=== PATIENT | male | born 1985 | race Caucasian/White ===

== ENCOUNTER 2021-09-08 02:30 | Emergency (ER) | payer SELFPAY ==
[~2021-09-08] VITALS: Ht 174 cm; Wt 77.0 kg
[2021-09-08] MEDS ORDERED: LACTATED RINGERS 1,000 ML IV ONE (02:45)
[2021-09-08] MEDS ORDERED: TETANUS,DIPTH,PERTUSS P/F (BOOSTRIX) 0.5 ML VIAL IM ONE (02:45)
[2021-09-08] MEDS ORDERED: PIPERACILLIN SODIUM/TAZOBACTAM 4.5 GM in NS (IVPB) 100 ML IV ONE (02:45)
[2021-09-08] MEDS ORDERED: KETOROLAC 30 MG/ML VIAL IVP ONE (02:45)
[2021-09-08 02:51] LABS: BASOPHILS # (AUTO) 0.1 10^3/uL (0.0-0.1); BASOPHILS % (AUTO) 1 % (0-10); EOSINOPHILS % (AUTO) 0 % (0-10); HEMATOCRIT 42 % (40-54); HEMOGLOBIN 14.4 g/dL (13.3-17.7); LYMPHOCYTES # (AUTO) 4.1 10^3/uL (1.0-4.0); LYMPHOCYTES % (AUTO) 22 % (12-44); MEAN CORPUSCULAR HEMOGLOBIN 31 pg (25-34); MEAN CORPUSCULAR HGB CONC 35 g/dL (32-36); MEAN CORPUSCULAR VOLUME 89 fL (80-99); MEAN PLATELET VOLUME 10.6 fL (9.0-12.2); MONOCYTES # (AUTO) 0.9 10^3/uL (0.0-1.0); MONOCYTES % (AUTO) 5 % (0-12); NEUTROPHILS # (AUTO) 13.4 10^3/uL (1.8-7.8); NEUTROPHILS % (AUTO) 72 % (42-75); PLATELET COUNT 301 10^3/uL (130-400); WHITE BLOOD COUNT 18.7 10^3/uL (4.3-11.0)
[2021-09-08 02:58] LABS: ALBUMIN 4.5 GM/DL (3.2-4.5); POTASSIUM 3.5 MMOL/L (3.6-5.0)
[2021-09-08 02:59] LABS: CALCIUM 8.9 MG/DL (8.5-10.1)
[2021-09-08 03:01] LABS: PROTHROMBIN TIME PATIENT 13.2 SEC (12.2-14.7); TOTAL PROTEIN 7.6 GM/DL (6.4-8.2)
[2021-09-08 03:02] LABS: BILIRUBIN,TOTAL 0.4 MG/DL (0.1-1.0)
[2021-09-08 03:04] LABS: CREATININE SERUM 1.07 MG/DL (0.60-1.30)
[2021-09-08 03:11] LABS: LYMPHOCYTES % (MANUAL) 25 %; MONOCYTES % (MANUAL) 4 %; NEUTROPHILS % (MANUAL) 70 %
[2021-09-08 03:12] LABS: BASOPHILS % (MANUAL) 1 %; RBC MORPH NORMAL
[2021-09-08] MEDS ORDERED: AMOX1TAB12 PO (03:33)
[2021-09-08] MEDS ORDERED: NAPR500T8 PO (03:33)
[2021-09-08] MEDS ORDERED: ACHD5005 PO (03:33)
--- NOTE | 2021-09-08 03:34 | ED Upper Extremity ---
General Chief Complaint: Bite-Animal/Human/Insect Stated Complaint: BITTEN BY A MULE AND DRAGGED AROUND Nursing Triage Note: LEFT ARM MULE BITE Source: patient History of Present Illness Date Seen by Provider: Sep 08, 2021 Time Seen by Provider: 02:30 Initial Comments PT ARRIVES VIA POV FROM [place], NEEDS WHEELCHAIR ON ARRIVAL JUST PRIOR TO ARRIVAL-AROUND 0200, PT STATES HE WAS BITTEN ON HIS LEFT FOREARM BY HIS NEIGHBOR'S MULE STATES HE WAS PETTING THE MULE WHEN IT BIT HIM. STATES THE MULE DRUG HIM FOR A FEW FEET, BUT PT DENIES ANY OTHER INJURIES OR AREAS OF PAIN NO LOSS OF CONSCIOUSNESS OR INJURY TO HEAD NO PARESTHESIAS OR MOTOR DEFICITS NO NECK OR BACK PAIN LAST TETANUS VACCINE IS UNKNOWN PT HAS NO KNOWN CHRONIC MEDICAL PROBLEMS AND DOES NOT TAKE ANY MEDICATIONS PT HAS DRANK AN UNKNOWN AMOUNT OF ALCOHOL TONIGHT DENIES DRUG USE. PCP: NONE Allergies and Home Medications Allergies Coded Allergies: No Known Drug Allergies (Unverified , 09/08/21) Patient Home Medication List Amoxicillin/Potassium Clav (Amox Tr-K Clv 875-125 mg Tab) 875 Mg-125 Mg Tablet, 2 EA PO BID, (Reported) Entered as Reported by: HENNY VASQUES on 09/10/21 1114 Hydrocodone/Acetaminophen (Hydrocodone-Acetamin 5-325 mg) 5 Mg-325 Mg Tablet, 1 EA PO Q4H PRN for PAIN-MODERATE (5-7), (Reported) Entered as Reported by: HENNY VASQUES on 09/10/21 1114 Naproxen (Naproxen) 500 Mg Tablet.dr, 1,000 MG PO BID, (Reported) Entered as Reported by: HENNY VASQUES on 09/10/21 1110 Review of Systems Constitutional: no symptoms reported EENTM: no symptoms reported Respiratory: no symptoms reported Cardiovascular: no symptoms reported Gastrointestinal: no symptoms reported Genitourinary: no symptoms reported Musculoskeletal: see HPI Skin: see HPI Psychiatric/Neurological: No Symptoms Reported Past Vsdtgvq-Iqukvp-Bovauf Hx Patient Social History Tobacco Use?: No Substance use?: No Alcohol Use?: Yes Alcohol Frequency: Once in a while Pt feels they are or have been: No Immunizations Up To Date Tetanus Booster (TDap): Unknown Past Medical History Surgery/Hospitalization HX: DENIES Surgeries: No Respiratory: No Cardiac: No Neurological: No Genitourinary: No Gastrointestinal: No Musculoskeletal: No Endocrine: No HEENT: No Cancer: No Psychosocial: No Integumentary: No Blood Disorders: No Physical Exam Vital Signs Vital Signs - First Documented 09/08/21 02:30 Temp 36.6 Pulse 53 Resp 16 B/P (MAP) 100/88 (92) Pulse Ox 95 O2 Delivery Room Air Capillary Refill : Less Than 3 Seconds Height, Weight, BMI Height: '" Weight: lbs. oz. kg; 25.00 BMI Method: General Appearance: thin, other (PT WEARING ONLY SHORTS AND "CROC"-TYPE SHOES. PT IS COVERED IN MUD AND DIRT FROM HEAD TO TOE. PT REEKS OF ALCOHOL, PT IS PALE AND DIAPHORETIC ON ARRIVAL. SPEECH IS CLEAR. PT IS VERY PLEASANT AND COOPERATIVE. REEKS OF ALCOHOL) HEENT: PERRL/EOMI, other (NO EXTERNAL EVIDENCE OF TRAUMA TO HEAD) Neck: non-tender, full range of motion, supple, normal inspection Cardiovascular: normal peripheral pulses, regular rate, rhythm Respiratory: chest non-tender, normal breath sounds Gastrointestinal: non tender, soft Back: normal inspection, no CVA tenderness, no vertebral tenderness Shoulder: normal inspection Elbow/Forearm: Left (LEFT FOREARM WITH MULTIPLE LACERATIONS --2 LARGE LACERATIONS TO ANTERIOR ASPECT OF FOREARM ( 2 X 6 CM, AND 2 X 3 CM ) --WITH SIGNFICANT MUSCLE INVOLVEMENT. POSTERIOR ASPECT OF LEFT FOREARM WITH 3 LACERATIONS --ALL 1 X 1.5 CM IN SIZE, AND ARE FAIRLY SUPERFICIAL-DO NOT APPEAR TO INVOLVE MUSCLE TISSUE. HAS A SMALLER SUPERFICIAL ABRASION ASSOCIATED WITH THESE LACERATIONS. ALL WOUNDS ARE HEAVILY CONTAMINATED WITH DIRT/MUD. ALL WOUNDS WITH SLOW CONSTANT OOZING. ALL DISTAL MOTOR/SENSORY/VASCULAR IS INTACT. NO DEFICIT IN TENDON FUNCTION. ) Wrist: Yes normal inspection Hand: normal inspection Neurologic/Psychiatric: electric meter installer II-XII nml as tested, alert, normal mood/affect, oriented x 3 Skin: cool, diaphoresis, pallor Progress/Results/Core Measures Results/Orders Lab Results My Orders Medications Given in ED Vital Signs/I&O Blood Pressure Mean: 92 Progress Progress Note : Progress Note GIVEN IV WARM FLUIDS, ANTIBIOTICS, DPT VACCINE AND PAIN MEDICATIONS BP UP AND COLOR IMPROVED WITH IV FLUIDS ALL WOUNDS CLEANED AND PROFUSELY IRRIGATED WITH BETASEPT AND 5 LITERS OF SALINE AND STERILE WATER AND EXPLORED. UNABLE TO LOCATE THE LARGER FOREIGN BODY NOTED ON XRAY AT THIS TIME. WOUNDS PACKED WITH 1" IODOFORM GAUZE AND STERILE DRESSINGS APPLIED AND SECURED WITH ANICETO WRAP, PER 'S INSTRUCTIONS. [facility] DEPT CONTACTED, NO ONE FROM [facility] IS AVAILABLE AT THIS TIME. PT'S INFORMATION WAS GIVEN TO THEM. RABIES VACCINES ARE NOT INDICATED AT THIS TIME, DUE TO LOW RISK, AND THE ANIMAL IS KNOWN AND CAN BE OBSERVED. STRICT RETURN PRECAUTIONS DISCUSSED WITH PT. Diagnostic Imaging Comments XRAYS LEFT FOREARM--PENDING RADIOLOGIST REVIEW LARGE FOREIGN BODY AND MULTIPLE SMALL FOREIGN BODIES NOTED IN SOFT TISSUES, WITH SOFT TISSUE DEFECTS NOTED NO BONY TRAUMA NOTED. Reviewed: Reviewed by Me Departure Communication (Admissions) 255--SPOKE WITH DR. MORE, SURGEON GROUP RESERVATIONS COORDINATOR. HE ADVISES TO TAKE PICTURES OF XRAYS AND OF THE WOUNDS AND TEXT TO HIM 307--SPOKE WITH DR. MORE AGAIN. HE HAS REVIEWED PHOTOS AND XRAYS. I DISCUSSED POSSIBILITY OF TAKING TO THE O.R. AND/OR ADMIT FOR IV ANTIBIOTICS AND HE ADVISES TO PACK WOUNDS WITH IODOFORM PACKING, START ON AUGMENTIN AND HE WILL SEE PT IN OFFICE ON FRIDAY. Impression Primary Impression: MULE BITE TO LEFT FOREARM Additional Impressions: COMPLEX LACERATIONS TO LEFT FOREARM WITH RETAINED FOREIGN BODY Npexbboklu-ukxgbklwu-zdjscfg (DPT) vaccination administered at current visit Alcohol intoxication Disposition: HOME, SELF-CARE Condition: Stable Departure-Patient Inst. Decision time for Depature: 03:30 Referrals: ROSE MORE DO Patient Instructions: Animal Bites (DC), Diphtheria and Tetanus Toxoids, and Acellular Pertussis Vaccine Add. Discharge Instructions: NO ALCOHOL LEAVE DRESSING IN PLACE ICE TO AREA AT 20 MINUTE INTERVALS AND ELEVATE ARM MUCH POSSIBLE FOLLOW UP WITH DR. MORE, SURGEON, ON FRIDAY FOR FURTHER CARE--CALL FIRST THING FRIDAY MORNING TO SCHEDULE APPOINTMENT RETURN TO ER IF SYMPTOMS WORSEN, ESPECIALLY IF YOU DEVELOP FEVER, INCREASED PAIN, NUMBNESS/TINGLING, ETC. All discharge instructions reviewed with patient and/or family. Voiced understanding. MANJIT MOONEY DO Sep 08, 2021 03:34
[2021-09-08 03:39] VITALS: BP 120/67
--- NOTE | 2021-09-08 07:07 | Diagnostic Imaging Report ---
EXAMINATION: Left forearm radiograph, 2 views. COMPARISON: None. HISTORY: 36-year-old male, multiple bites of the left forearm. FINDINGS: There is a high attenuation foreign body within the anterior soft tissues at the level of the mid forearm which measures up to approximately 1.2 cm in size. There are multiple adjacent additional fairly linear high attenuation foreign bodies including more proximally located in the anterior soft tissues centered approximately 2.8 cm proximal to the largest foreign body. There are overlying areas of skin contour abnormality as well as adjacent soft tissue gas as well as skin contour abnormalities and areas of lucency in the posterior soft tissues most likely relating to multiple sites of soft tissue injury and/or penetrating type injury. There are also punctate high attenuation foci in the posterior soft tissues extending from the level of the proximal to mid radial diaphysis to the mid to distal radial diaphysis. There is no identified acute fracture. There is no cortical or aggressive bone destruction. IMPRESSION: 1. Multiple sites of soft tissue injury and/or penetrating type injuries at the level of the anterior and posterior aspects of the mid forearm. 2. Multiple foreign bodies both anteriorly and posteriorly located. 3. No identified acute osseous abnormality. Dictated by: Dictated on workstation # [id number]
== END 2021-09-08 03:42 | disposition home or self-care (01) ==
LOC: ER 02:35
DX: S51.852A Open bite of left forearm, initial encounter (principal); S51.822A Laceration with foreign body of left forearm, initial encounter; F10.129 Alcohol abuse with intoxication, unspecified; Z23 Encounter for immunization; W55.81XA Bitten by other mammals, initial encounter
CPT/HCPCS: 73090; 80053; 85007; 85027; 85610; 85730; 93041; 99284; G0480; 36415; 80320; 90715

== ENCOUNTER 2021-09-09 08:13 | Inpatient (IN) | payer SELFPAY ==
[~2021-09-09] VITALS: Ht 170.2 cm; Wt 66.8 kg
[~2021-09-09 08:13] MED LIST: ACHD5005 PO; AMOX1TAB12 PO; NAPR500T8 PO
[2021-09-09 09:25] LABS: BASOPHILS % (AUTO) 0 % (0-10); EOSINOPHILS % (AUTO) 0 % (0-10); HEMATOCRIT 42 % (40-54); HEMOGLOBIN 14.4 g/dL (13.3-17.7); LYMPHOCYTES % (AUTO) 8 % (12-44); MEAN CORPUSCULAR HEMOGLOBIN 31 pg (25-34); MEAN CORPUSCULAR HGB CONC 35 g/dL (32-36); MEAN CORPUSCULAR VOLUME 89 fL (80-99); MEAN PLATELET VOLUME 10.6 fL (9.0-12.2); MONOCYTES # (AUTO) 1.5 10^3/uL (0.0-1.0); MONOCYTES % (AUTO) 12 % (0-12); NEUTROPHILS # (AUTO) 10.3 10^3/uL (1.8-7.8); NEUTROPHILS % (AUTO) 80 % (42-75); PLATELET COUNT 204 10^3/uL (130-400); WHITE BLOOD COUNT 12.8 10^3/uL (4.3-11.0)
[2021-09-09 09:31] LABS: ALBUMIN 4.4 GM/DL (3.2-4.5)
[2021-09-09 09:32] LABS: POTASSIUM 3.8 MMOL/L (3.6-5.0)
[2021-09-09 09:33] LABS: CALCIUM 9.3 MG/DL (8.5-10.1)
[2021-09-09 09:34] LABS: TOTAL PROTEIN 7.8 GM/DL (6.4-8.2)
[2021-09-09 09:36] LABS: BILIRUBIN,TOTAL 2.5 MG/DL (0.1-1.0)
[2021-09-09 09:38] LABS: CREATININE SERUM 1.01 MG/DL (0.60-1.30)
--- NOTE | 2021-09-09 09:48 | Diagnostic Imaging Report ---
CLINICAL INDICATION: Patient was bit by donkey. Patient states that he was seen last Friday night for a mule bite. Patient stated that his hand started swelling last night. EXAM: X-ray of the left forearm, 2 views. COMPARISON: X-ray of the left forearm dated 09/08/2021. FINDINGS AND IMPRESSION: 1: Again noted prominent soft tissue avulsions involving the volar aspect of the soft tissue of the mid to proximal forearm region. There are stable multiple radiodense foreign objects in the region of the soft tissue laceration. There is soft tissue swelling seen in the region. There is also soft tissue swelling and laceration involving the dorsal aspect of the forearm in a similar location. 2: There is no acute fracture or dislocation. Dictated by: Dictated on workstation # [id number]
[2021-09-09 09:49] LABS: EOSINOPHILS % (MANUAL) 1 %; LYMPHOCYTES % (MANUAL) 6 %; MONOCYTES % (MANUAL) 5 %; NEUTROPHILS % (MANUAL) 83 %; REACTIVE LYMPHOCYTES 5 %
[2021-09-09 09:50] LABS: RBC MORPH NORMAL
[2021-09-09] MEDS ORDERED: VANCOMYCIN INJECTION 750 MG in NS (IVPB) 250 ML IV SCH (10:00)
--- NOTE | 2021-09-09 10:12 | ED General ---
General Chief Complaint: Upper Extremity Stated Complaint: L ARM SWELLING - MULE BITE 09/07 Nursing Triage Note: PT AMB TO RM 5 A/O X4. PT STATED THAT HE WAS SEEN LATE FRIDAY NIGHT FOR A MULE BITE. PT STATED THAT HIS HAND STARTED SWELLING LAST NIGHT. Source of Information: Patient, Family, Old Records Exam Limitations: No Limitations History of Present Illness Date Seen by Provider: Sep 09, 2021 Time Seen by Provider: 08:52 Initial Comments This 36-year-old gentleman presents to the emergency room with concerns about worsening pain, swelling, and redness of the forearm, wrist, and hand after being injured and bitten by a donkey on Friday night. He was seen in the emergency room. The wound was thoroughly irrigated, packed, and dressed. He was treated with Zosyn at that time and prescribed Augmentin which he started last night. In the night he was feeling feverish and chilled. This morning he was feeling generally ill and nauseous. He took hydrocodone and naproxen this morning as prescribed. Dressing has not been changed since the injury. He is afebrile with unremarkable vital signs at this time. Patient was heavily intoxicated at the time of the incident. He does not drink daily per his report. Allergies and Home Medications Allergies Coded Allergies: No Known Drug Allergies (Unverified , 09/08/21) Patient Home Medication List Home Medication List Reviewed: Yes Amoxicillin/Potassium Clav (Amox Tr-K Clv 875-125 mg Tab) 875 Mg-125 Mg Tablet, 2 EACH PO BID Prescribed by: MANJIT MOONEY on 09/08/21332 Hydrocodone/Acetaminophen (Hydrocodone-Acetamin 5-325 mg) 5 Mg-325 Mg Tablet, 1 EACH PO Q4-6 HOURS PRN for PAIN Prescribed by: MANJIT MOONEY on 09/08/21332 Naproxen (Naproxen) 500 Mg Tablet.dr, 500 MG PO BID Prescribed by: MANJIT MOONEY on 09/08/21332 Review of Systems Review of Systems Constitutional: see HPI EENTM: no symptoms reported Respiratory: no symptoms reported Cardiovascular: no symptoms reported Gastrointestinal: see HPI Genitourinary: no symptoms reported Musculoskeletal: see HPI Skin: see HPI Psychiatric/Neurological: No Symptoms Reported Hematologic/Lymphatic: No Symptoms Reported Immunological/Allergic: no symptoms reported Past Zrxsilv-Uoinlj-Klnabu Hx Patient Social History Tobacco Use?: No Substance use?: No Alcohol Use?: Yes Alcohol Frequency: Once in a while Pt feels they are or have been: Unable to obtain Immunizations Up To Date Tetanus Booster (TDap): Unknown Influenza Vaccine Up-to-Date: No; Not Current Past Medical History Surgery/Hospitalization HX: DENIES Surgeries: No Respiratory: No Cardiac: No Neurological: No Genitourinary: No Gastrointestinal: No Musculoskeletal: No Endocrine: No HEENT: No Cancer: No Psychosocial: No Integumentary: No Blood Disorders: No Physical Exam-Suspected Sepsis Physical Exam Vital Signs Vital Signs - First Documented 09/09/21 08:23 Temp 36.2 Pulse 63 Resp 14 B/P (MAP) 127/80 (96) O2 Delivery Room Air Capillary Refill : Less Than 3 Seconds Blood Pressure Mean: 96 Height, Weight, BMI Height: '" Weight: lbs. oz. kg; 22.00 BMI Method: General Appearance: No Apparent Distress, WD/WN, Thin HEENT: PERRL/EOMI, Other (Multiple scabbed abrasions on the head and face) Neck: Normal Inspection Respiratory: Lungs Clear, Normal Breath Sounds, No Accessory Muscle Use Cardiovascular: Regular Rate, Rhythm, No Edema, No Murmur Gastrointestinal: Normal Bowel Sounds, Non Tender, Soft; No Distended Extremity: No Pedal Edema, Other (2 large lacerations on the ventral aspect of the left arm packed with gauze and demonstrating mild serosanguineous oozing. There is no purulent drainage. The hand, wrist, and forearm distal to the wounds are erythematous, swollen, tender, and warm. He retains flexion and extension of the fingers and movement in the wrist. He retains sensation of his fingertips. Radial pulse is strong.) Neurologic/Psychiatric: Alert, Oriented x3, No Motor/Sensory Deficits, Normal Mood/Affect Skin: warm/dry, other (Scattered scabbed abrasions in several locations. Left upper extremity exam as above.) Focused Exam Lactate Level 09/09/21 09:38: Lactic Acid Level 0.76 Lactic Acid Level Laboratory Tests Test 09/09/21 09:38 Lactic Acid Level 0.76 MMOL/L (0.50-2.00) Progress/Results/Core Measures Suspected Sepsis SIRS Temperature: Pulse: 63 Respiratory Rate: 14 Laboratory Tests 09/09/21 09:10: White Blood Count 12.8H Blood Pressure 127 /80 Mean: 96 09/09/21 09:38: Lactic Acid Level 0.76 Laboratory Tests 09/09/21 09:10: Creatinine 1.01, Platelet Count 204, Total Bilirubin 2.5H Results/Orders Lab Results Laboratory Tests Test 09/09/21 09:10 09/09/21 09:38 Range/Units White Blood Count 12.8 H 4.3-11.0 10^3/uL Red Blood Count 4.67 4.30-5.52 10^6/uL Hemoglobin 14.4 13.3-17.7 g/dL Hematocrit 42 40-54 % Mean Corpuscular Volume 89 80-99 fL Mean Corpuscular Hemoglobin 31 25-34 pg Mean Corpuscular Hemoglobin Concent 35 32-36 g/dL Red Cell Distribution Width 12.1 10.0-14.5 % Platelet Count 204 130-400 10^3/uL Mean Platelet Volume 10.6 9.0-12.2 fL Immature Granulocyte % (Auto) 1 % Neutrophils (%) (Auto) 80 H 42-75 % Lymphocytes (%) (Auto) 8 L 12-44 % Monocytes (%) (Auto) 12 0-12 % Eosinophils (%) (Auto) 0 0-10 % Basophils (%) (Auto) 0 0-10 % Neutrophils # (Auto) 10.3 H 1.8-7.8 10^3/uL Lymphocytes # (Auto) 1.0 1.0-4.0 10^3/uL Monocytes # (Auto) 1.5 H 0.0-1.0 10^3/uL Eosinophils # (Auto) 0.0 0.0-0.3 10^3/uL Basophils # (Auto) 0.0 0.0-0.1 10^3/uL Immature Granulocyte # (Auto) 0.1 0.0-0.1 10^3/uL Neutrophils % (Manual) 83 % Lymphocytes % (Manual) 6 % Monocytes % (Manual) 5 % Eosinophils % (Manual) 1 % Reactive Lymphocytes 5 % Blood Morphology Comment NORMAL Sodium Level 138 135-145 MMOL/L Potassium Level 3.8 3.6-5.0 MMOL/L Chloride Level 101 98-107 MMOL/L Carbon Dioxide Level 26 21-32 MMOL/L Anion Gap 11 5-14 MMOL/L Blood Urea Nitrogen 19 H 7-18 MG/DL Creatinine 1.01 0.60-1.30 MG/DL Estimat Glomerular Filtration Rate 99 BUN/Creatinine Ratio 19 Glucose Level 109 H 70-105 MG/DL Calcium Level 9.3 8.5-10.1 MG/DL Corrected Calcium 9.0 8.5-10.1 MG/DL Total Bilirubin 2.5 H 0.1-1.0 MG/DL Aspartate Amino Transf (AST/SGOT) 335 H 5-34 U/L Alanine Aminotransferase (ALT/SGPT) 230 H 0-55 U/L Alkaline Phosphatase 82 40-136 U/L C-Reactive Protein High Sensitivity 13.14 H 0.00-0.50 MG/DL Total Protein 7.8 6.4-8.2 GM/DL Albumin 4.4 3.2-4.5 GM/DL Acetaminophen Level < 10 L 10-30 UG/ML Lactic Acid Level 0.76 0.50-2.00 MMOL/L My Orders Orders - DANNA ASHRAF MD Cbc With Automated Diff (09/09/21 09:09) Comprehensive Metabolic Panel (09/09/21 09:09) Blood Culture (09/09/21 09:09) Ed Iv/Invasive Line Start (09/09/21 09:09) Vital Signs Adult Sepsis Patie Q15M (09/09/21 09:09) Remove Rings In Anticipation O (09/09/21 09:09) Lactic Acid Analyzer (09/09/21 09:09) Wound Culture (09/09/21 09:19) Forearm, Left, 2 Views (09/09/21 09:20) Manual Differential (09/09/21 09:10) Hs C Reactive Protein (09/09/21 09:35) Procalcitonin (Pct) (09/09/21 09:35) Wound Culture (09/09/21 09:35) Acetaminophen (09/09/21 09:49) Vancomycin Injection (Vancomycin Injecti (09/09/21 10:00) Vital Signs/I&O 09/09/21 08:23 Temp 36.2 Pulse 63 Resp 14 B/P (MAP) 127/80 (96) O2 Delivery Room Air Capillary Refill : Less Than 3 Seconds Blood Pressure Mean: 96 Progress Note : Time: 10:10 Progress Note Patient was found to have modest to moderate elevation in WBC and CRP. Review of prior documentation notes the foreign body seen on prior x-ray was not found during wound exploration. Repeat x-rays with skin markers were obtained, and the foreign bodies are still retained. There is concerned that these foreign bodies could be a nidus for infection and causing cellulitis of the hand and wrist. I have discussed this with Dr. Rondon. Surgical exploration of the wound to investigate these foreign bodies is being contemplated. Patient will be kept n.p.o. for the time being. In the meantime, we will treat with Zosyn and vancomycin. Patient also has a curious significant increase in transaminase and bilirubin levels. He denies any use of Tylenol other than the hydrocodone he was prescribed. Tylenol level was undetectable. The increase was marked from his labs on Friday. Wound will be repacked with iodoform packing and wrapped with Kerlix. Case was also discussed with Dr. Pop who will be the attending physician. Diagnostic Imaging Diagonstic Imaging: Xray Plain Films/CT/US/NM/MRI: chest Comments Forearm x-ray viewed by me and report reviewed. See report below: NAME: ZEN PARKER [facility] REC#: [id number] PT STATUS: REG ER : 1985 PHYSICIAN: DANNA ASHRAF MD ADMIT DATE: 09/09/21/ER Draft Date of Exam:09/09/21 FOREARM, LEFT, 2 VIEWS CLINICAL INDICATION: Patient was bit by donkey. Patient states that he was seen last Friday night for a mule bite. Patient stated that his hand started swelling last night. EXAM: X-ray of the left forearm, 2 views. COMPARISON: X-ray of the left forearm dated 09/08/2021. FINDINGS AND IMPRESSION: 1: Again noted prominent soft tissue avulsions involving the volar aspect of the soft tissue of the mid to proximal forearm region. There are stable multiple radiodense foreign objects in the region of the soft tissue laceration. There is soft tissue swelling seen in the region. There is also soft tissue swelling and laceration involving the dorsal aspect of the forearm in a similar location. 2: There is no acute fracture or dislocation. Dictated on workstation # [id number] Dict: 09/09/2141 Trans: 09/09/2146 CV [id number] Interpreted by: DILIP MORROW MD X-rays were also discussed with Dr. Rondon and compared with prior. Departure Communication (Admissions) Time/Spoke to Admitting Phy: 10:05 Dr. Larry Time/Spoke to Consulting Phy: 10:00 Dr. Rondon Impression Primary Impression: Cellulitis of left hand Additional Impressions: Animal bite Foreign body forearm Elevated liver transaminase level Disposition: ADMITTED INPATIENT Condition: Stable Admissions Decision to Admit Reason: Admit from ER (General) Decision to Admit/Date: Sep 09, 2021 Time/Decision to Admit Time: 10:00 Departure-Patient Inst. Referrals: NO,LOCAL PHYSICIAN (PCP/Family) Primary Care Physician DANNA ASHRAF MD Sep 09, 2021 10:12
[2021-09-09] MEDS ORDERED: PIPERACILLIN SODIUM/TAZOBACTAM 4.5 GM in NS (IVPB) 100 ML IV ONE (10:30)
[2021-09-09] MEDS ORDERED: VANCOMYCIN 1500 MG/NS 500 ML IVPB IV NR ×2 (10:45)
--- NOTE | 2021-09-09 12:01 | Consultation - Surgery ---
History of Present Illness History of Present Illness Patient Consulted On(nick/time) 09/09/21 12:01 Date Seen by Provider: Sep 09, 2021 Time Seen by Provider: 12:01 History of Present Illness Consult requested by Dr. Larry for left upper extremity cellulitis/bite from mule. Patient is a 36-year-old male who 2 days ago got bit by a mule. Patient had it washed out and packed. Was post to see me in the office. He has been compliant with taking antibiotics. The area on the left arm states he has had a little bit of increased redness and swelling. He is not having any purulent drainage. He has moderate discomfort. No radiation of pain. Open wounds in 5 spots. Denies having any fever at this time. Denies any sweats chills shortness of breath or chest pain. Had elevated transaminases. Allergies and Home Medications Allergies Coded Allergies: No Known Drug Allergies (Unverified , 09/08/21) Patient Home Medication List Home Medication List Reviewed: Yes Amoxicillin/Potassium Clav (Amox Tr-K Clv 875-125 mg Tab) 875 Mg-125 Mg Tablet, 2 EACH PO BID Prescribed by: MANJIT MOONEY on 09/08/21 0333 Hydrocodone/Acetaminophen (Hydrocodone-Acetamin 5-325 mg) 5 Mg-325 Mg Tablet, 1 EACH PO Q4-6 HOURS PRN for PAIN Prescribed by: MANJIT MOONEY on 09/08/21 0333 Naproxen (Naproxen) 500 Mg Tablet.dr, 500 MG PO BID Prescribed by: MANJIT MOONEY on 09/08/21 0333 Past Dluziai-Wtqwgm-Utqrwx Hx Patient Social History Alcohol Use?: Yes Have you traveled recently?: Unable to obtain Immunizations Up To Date Tetanus Booster (TDap): Unknown Surgeries History of Surgeries: No Respiratory History of Respiratory Disorde: No Cardiovascular History of Cardiac Disorders: No Neurological History of Neurological Disord: No Genitourinary History of Genitourinary Disor: No Gastrointestinal History of Gastrointestinal Di: No Musculoskeletal History of Musculoskeletal Dis: No Endocrine History of Endocrine Disorders: No HEENT History of HEENT Disorders: No Cancer History of Cancer: No Psychosocial History of Psychiatric Problem: No Integumentary History of Skin or Integumenta: No Blood Transfusions History of Blood Disorders: No Reviewed Nursing Assessment Reviewed/Agree w Nursing PMH: Yes Family Medical History Significant Family History: No Pertinent Family Hx Review of Systems-General Constitutional: No chills, No diaphoresis EENTM: No blurred vision, No double vision Respiratory: No cough, No dyspnea on exertion Cardiovascular: No chest pain, No palpitations Gastrointestinal: No abdominal pain, No nausea, No vomiting Genitourinary: No decreased output, No discharge Musculoskeletal: other (Left upper extremity pain with open wounds) Skin: change in color; No change in hair/nails Psychiatric/Neurological: Denies Anxiety, Denies Depressed, Denies Emotional Problems All Other Systems Reviewed Negative Unless Noted: Yes (Negative excepted noted.) Physical Exam-General Problems Physical Exam Vital Signs Vital Signs - First Documented 09/09/21 08:23 Temp 36.2 Pulse 63 Resp 14 B/P (MAP) 127/80 (96) O2 Delivery Room Air Capillary Refill : Less Than 3 Seconds General Appearance: WD/WN, no apparent distress HEENT: PERRL/EOMI, normal ENT inspection Neck: non-tender, supple Respiratory: chest non-tender, no respiratory distress, no accessory muscle use Cardiovascular: regular rate, rhythm, no JVD Gastrointestinal: non tender, soft Rectal: deferred Back: no CVA tenderness, no vertebral tenderness Extremities: other (Several open wounds to left upper extremity forearm with 1 laceration approximately 6 cm in length. No purulent drainage but the surrounding skin and subtenons tissue is slightly edematous and erythematous minimal tenderness to touch) Neurologic/Psychiatric: alert, normal mood/affect, oriented x 3 Skin: warm/dry (And noted as above) Lymphatic: no adenopathy Data Review Labs Laboratory Tests 09/09/21 09:10: White Blood Count 12.8H, Red Blood Count 4.67, Hemoglobin 14.4, Hematocrit 42, Mean Corpuscular Volume 89, Mean Corpuscular Hemoglobin 31, Mean Corpuscular Hemoglobin Concent 35, Red Cell Distribution Width 12.1, Platelet Count 204, Mean Platelet Volume 10.6, Immature Granulocyte % (Auto) 1, Neutrophils (%) (Auto) 80H, Lymphocytes (%) (Auto) 8L, Monocytes (%) (Auto) 12, Eosinophils (%) (Auto) 0, Basophils (%) (Auto) 0, Neutrophils # (Auto) 10.3H, Lymphocytes # (Auto) 1.0, Monocytes # (Auto) 1.5H, Eosinophils # (Auto) 0.0, Basophils # (Auto) 0.0, Immature Granulocyte # (Auto) 0.1, Neutrophils % (Manual) 83, Lymphocytes % (Manual) 6, Monocytes % (Manual) 5, Eosinophils % (Manual) 1, Reactive Lymphocytes 5, Blood Morphology Comment NORMAL, Sodium Level 138, Potassium Level 3.8, Chloride Level 101, Carbon Dioxide Level 26, Anion Gap 11, Blood Urea Nitrogen 19H, Creatinine 1.01, Estimat Glomerular Filtration Rate 99, BUN/Creatinine Ratio 19, Glucose Level 109H, Calcium Level 9.3, Corrected C alcium 9.0, Total Bilirubin 2.5H, Aspartate Amino Transf (AST/SGOT) 335H, A lanine Aminotransferase (ALT/SGPT) 230H, Alkaline Phosphatase 82, C-Reactive Protein High Sensitivity 13.14H, Total Protein 7.8, Albumin 4.4, Procalcitonin 2.07H, Acetaminophen Level < 10L 09/09/21 09:38: Lactic Acid Level 0.76 Assessment/Plan Assessment/Plan Assessment/Plan Donkey/mule bite left forearm Foreign body left forearm Cellulitis left forearm Transaminase elevated Patient admitted on IV antibiotics. Reveiwed x ray and has foreign body retained, if need to wash out will try and remove, but patient understands may not be able to find. Patient discussed risks and benefits of exploration of left forearm and washout all other indicated procedures and he and family understand in case we need to proceed to or and agree with plan. NPO after midnight dressing changes as needed. Repeat labs in am. ROSE MORE DO Sep 09, 2021 12:01
--- NOTE | 2021-09-09 12:04 | History & Physical-Hospitalist ---
History of Present Illness HPI/Chief Complaint Patient is a 36-year-old male with no past medical history who was bitten by a donkey a couple of days ago and presents now with concerns for infection. He was seen in the emergency department the evening that happened and the wound was washed out and he was started on antibiotics and advised to follow-up with Dr. Rondon. He has been compliant with his Augmentin but despite that has had worsening erythema and edema of his forearm. X-ray done in the initial visit revealed possible foreign body concerning for her tooth from the animal. Repeat x-ray today shows that that is still present. He is being admitted for IV antibiotics and potential cleanout in the OR. Surgery is consulted. He was also found to have an elevation of his liver enzymes which were normal 2 days ago. He has no history of liver disease but drinks occasionally and denies an appropriate Tylenol use. Date Seen 09/09/21 Time Seen by a Provider: 12:00 Attending Physician No,Local Physician PCP Admitting Physician: Beau Larry MD Attending Physician: Beau Larry MD Referring Physician Date of Admission Sep 09, 2021 at 10:37 Home Medications & Allergies Home Medications Reviewed patient Home Medication Reconciliation performed by pharmacy medication reconciliations results technician and/or nursing. Patients Allergies have been reviewed. Allergies Allergies Coded Allergies No Known Drug Allergies (Unverified09/08/21) Past Cyaqsah-Qcptij-Mvfuvp Hx Patient Social History Employed/Student: employed Tobacco Use?: No Substance use?: No Alcohol Use?: Yes Alcohol Frequency: Once in a while Pt feels they are or have been: Unable to obtain Immunizations Up To Date Tetanus Booster (TDap): Unknown Current Status Advance Directives: Unable to obtain Communicates: Verbally Primary Language: Qatari Preferred Spoken Language: Qatari Is interpretation needed?: No Implanted or Applied Medical D: None Past Medical History Blood Disorders: No No known medical history. Has never had surgery. Family Medical History Reviewed Nursing Family Hx No Pertinent Family Hx Review of Systems Constitutional: fever EENTM: no symptoms reported Respiratory: No cough, No short of breath Cardiovascular: No chest pain, No palpitations Gastrointestinal: No abdominal pain, No nausea, No vomiting Genitourinary: No dysuria, No frequency Musculoskeletal: see HPI Skin: see HPI, other (complains of scratch and bruises ) Psychiatric/Neurological: No Symptoms Reported Physical Exam Physical Exam Vital Signs Vital Signs - First Documented 09/09/21 09/09/21 09/09/21 08:15 08:23 12:49 Temp 36.2 Pulse 60 Resp 14 B/P (MAP) 127/80 Pulse Ox 98 O2 Delivery Room Air Capillary Refill : Less Than 3 Seconds Height, Weight, BMI Height: '" Weight: lbs. oz. kg; 22.00 BMI Method: General Appearance: No Apparent Distress, Thin, Other (appears older than stated age) HEENT: PERRL/EOMI, Moist Mucous Membranes; No Scleral Icterus (L), No Scleral Icterus (R) Neck: Normal Inspection, Supple Respiratory: Lungs Clear, No Accessory Muscle Use, No Respiratory Distress Cardiovascular: Regular Rate, Rhythm, No JVD, No Murmur Gastrointestinal: Normal Bowel Sounds, Non Tender, Soft Extremity: No Calf Tenderness, No Pedal Edema, Other (feet visibily dirty) Neurologic/Psychiatric: Alert, Oriented x3, Normal Mood/Affect; No Aphasia, No Facial Droop Skin: Normal Color, Ecchymosis, Other (abrasions on torso and arms, left forearm dressed in gauze, left hadn with minimal edema- good ROM, 2+ radial pulse, sensation intact) Results Results/Procedures Labs Laboratory Tests 09/09/21 09:10 Patient resulted labs reviewed. Imaging: Reviewed Imaging Report [facility] [place], [place] NAME: ZEN PARKER [facility] REC#: [id number] PT STATUS: REG ER : 1985 PHYSICIAN: DANNA ASHRAF MD ADMIT DATE: 09/09/21/ER Draft Date of Exam:09/09/21 FOREARM, LEFT, 2 VIEWS CLINICAL INDICATION: Patient was bit by donkey. Patient states that he was seen last Friday night for a mule bite. Patient stated that his hand started swelling last night. EXAM: X-ray of the left forearm, 2 views. COMPARISON: X-ray of the left forearm dated 09/08/2021. FINDINGS AND IMPRESSION: 1: Again noted prominent soft tissue avulsions involving the volar aspect of the soft tissue of the mid to proximal forearm region. There are stable multiple radiodense foreign objects in the region of the soft tissue laceration. There is soft tissue swelling seen in the region. There is also soft tissue swelling and laceration involving the dorsal aspect of the forearm in a similar location. 2: There is no acute fracture or dislocation. Dictated on workstation # [id number] Dict: 09/09/21940 Trans: 09/09/21945 CV [id number] Interpreted by: DILIP MORROW MD Electronically signed by: Assessment/Plan Admission Diagnosis Cellulitis Admission Status: Inpatient Order (span 2 midnights) Reason for Inpatient Admission: see below Assessment and Plan Severe sepsis Cellulitis Animal bite Leukocytosis with Fever at home and cellulitis Continue on Vanc and Zosyn Surgery consulted appreciate recs May got to the OR for clean out eventually Await cultures Transaminitis Likely due to sepsis Will get hepatitis panel Tylenol level <10 DVT ppx: SCD only for potential washout in OR Diagnosis/Problems Diagnosis/Problems (1) Elevated liver transaminase level Status: Acute (2) Animal bite Status: Acute (3) Sepsis Qualifiers: Sepsis type: sepsis due to unspecified organism Sepsis acute organ dysfu nction status: with acute organ dysfunction Severe sepsis acute organ dysfunc tion type: acute liver failure Hepatic coma status: without hepatic coma Severe sepsis shock status: without septic shock Qualified Codes: A41.9 - Sepsis, unspecified organism; R65.20 - Severe sepsis without septic shock; K72.00 - Acute and subacute hepatic failure without coma (4) Cellulitis of left hand Status: Acute (5) Foreign body forearm Status: Acute BEAU LARRY MD Sep 09, 2021 12:04
[2021-09-09 13:00] VITALS: BP 131/85
[2021-09-09] MEDS ORDERED: ANTACID SUSP 30 ML UDC (MYLANTA) PO PRN (13:15)
[2021-09-09] MEDS ORDERED: BENZONATATE 100 MG (TESSALON) CAPSULE PO PRN (13:15)
[2021-09-09] MEDS ORDERED: VANCOMYCIN INJECTION 0.1 MG in NS (IVPB) 250 ML IV SCH (13:15)
[2021-09-09] MEDS ORDERED: MELATONIN 3 MG TABLET PO PRN (13:15)
[2021-09-09] MEDS ORDERED: MILK OF MAGNESIA 400 MG/5 ML 30 ML UDC PO PRN (13:15)
[2021-09-09] MEDS ORDERED: ONDANSETRON 4 MG/2 ML (SDV) Z0FRAN IV PRN (13:15)
[2021-09-09] MEDS: NS IV 1000 ML 1,000 ML IV SCH ×2 (13:43→19:55)
[2021-09-09 15:57] VITALS: BP 120/77
[2021-09-09] MEDS: PIPERACILLIN SODIUM/TAZOBACTAM 4.5 GM in NS (IVPB) 100 ML IV SCH (17:20)
[2021-09-09 20:22] VITALS: BP 125/79
[2021-09-09] MEDS: VANCOMYCIN 1 GM/NS 250 ML IVPB IV SCH ×2 (20:44)
[2021-09-09] MEDS: morphine INJ 4 MG/ML 1 ML (VIAL/SYRINGE) IVP PRN (20:45)
[2021-09-09 23:34] VITALS: BP 108/75
[2021-09-10] VITALS (11 sets, daily range): BP systolic 90–128; BP diastolic 55–87
[2021-09-10] MEDS: PIPERACILLIN SODIUM/TAZOBACTAM 4.5 GM in NS (IVPB) 100 ML IV SCH ×3 (00:29→18:05)
[2021-09-10] MEDS: NS IV 1000 ML 1,000 ML IV SCH ×4 (00:29→20:33)
[2021-09-10] MEDS: VANCOMYCIN 1 GM/NS 250 ML IVPB IV SCH ×6 (02:46→18:06)
[2021-09-10] MEDS: morphine INJ 4 MG/ML 1 ML (VIAL/SYRINGE) IVP PRN (02:46)
[2021-09-10] MEDS ORDERED: TROUGH ORDER-PHARMACY XX NR (10:00)
[2021-09-10 10:11] LABS: BASOPHILS % (AUTO) 0 % (0-10); EOSINOPHILS # (AUTO) 0.1 10^3/uL (0.0-0.3); EOSINOPHILS % (AUTO) 1 % (0-10); HEMATOCRIT 35 % (40-54); HEMOGLOBIN 11.9 g/dL (13.3-17.7); LYMPHOCYTES # (AUTO) 1.2 10^3/uL (1.0-4.0); LYMPHOCYTES % (AUTO) 11 % (12-44); MEAN CORPUSCULAR HEMOGLOBIN 31 pg (25-34); MEAN CORPUSCULAR HGB CONC 34 g/dL (32-36); MEAN CORPUSCULAR VOLUME 91 fL (80-99); MEAN PLATELET VOLUME 11.2 fL (9.0-12.2); MONOCYTES % (AUTO) 9 % (0-12); NEUTROPHILS # (AUTO) 8.5 10^3/uL (1.8-7.8); NEUTROPHILS % (AUTO) 78 % (42-75); PLATELET COUNT 189 10^3/uL (130-400); WHITE BLOOD COUNT 10.9 10^3/uL (4.3-11.0)
--- NOTE | 2021-09-10 10:15 | Progress Note - Surgery ---
Subjective Date Seen by a Provider: Sep 10, 2021 Time Seen by a Provider: 10:13 Subjective/Events-last exam left arm occasional pain, certain movements make worse. Redness decreased some, less swelling. Denies n/v fever sweats chills shortness of breath or chest pain. Focused Exam Lactate Level 09/09/21 09:38: Lactic Acid Level 0.76 09/09/21 13:41: Lactic Acid Level 0.74 Objective Exam Vital Signs Date Time Temp Pulse Resp B/P (MAP) Pulse Ox O2 Delivery O2 Flow Rate FiO2 09/10/21 08:00 Room Air 09/10/21 07:38 36.9 61 18 98/65 (76) 99 Room Air 09/10/21 04:30 37.2 55 16 119/76 (90) 100 Room Air 09/09/21 23:34 36.9 63 18 108/75 (86) 99 Room Air 09/09/21 21:23 Room Air 09/09/21 20:22 36.3 52 18 125/79 (94) 99 Room Air 09/09/21 15:57 36.4 47 18 120/77 (91) 99 Room Air 09/09/21 14:00 Room Air 09/09/21 13:00 36.6 49 17 131/85 (100) 100 Room Air 09/09/21 13:00 36.6 49 17 131/85 (100) 100 Room Air 09/09/21 12:50 52 12 112/78 98 Room Air 09/09/21 12:49 52 12 112/78 98 Room Air 09/09/21 12:30 62 117/76 09/09/21 11:30 68 130/80 09/09/21 10:15 56 115/72 I & O 09/10/21 07:00 Intake Total 1055 ml Balance 1055 ml Capillary Refill : Less Than 3 Seconds General Appearance: No Apparent Distress, Thin HEENT: PERRL/EOMI, Moist Mucous Membranes; No Scleral Icterus (L), No Scleral Icterus (R) Neck: Normal Inspection, Supple Respiratory: Chest Non Tender, No Accessory Muscle Use, No Respiratory Distress Cardiovascular: Regular Rate, Rhythm, No JVD Gastrointestinal: non tender, soft Extremity: No Pedal Edema, Other (left upper extremity open wound, no purulent drainage, serous, less erythema and swelling, tender) Neurologic/Psychiatric: Alert, Oriented x3, Normal Mood/Affect; No Aphasia, No Facial Droop Skin: Normal Color, Ecchymosis, Other (abrasions on torso and arms, left forearm dressed in gauze, left hadn with minimal edema- good ROM, 2+ radial pulse, sensation intact) Lymphatic: No Adenopathy Results Lab Laboratory Tests 09/09/21 13:41: Lactic Acid Level 0.74 09/10/21 00:00: 09/10/21 09:40: Microbiology 09/09/21 Gram Stain - Final, Resulted 09/09/21 Wound Culture - Preliminary, Resulted Assessment/Plan Assessment/Plan Assessment/Plan Donkey/mule bite left forearm Foreign body left forearm Cellulitis left forearm Transaminase elevated Patient admitted on IV antibiotics. Reveiwed x ray and has foreign body retained, if need to wash out will try and remove, but patient understands may not be able to find. Patient discussed risks and benefits of exploration of left forearm and washout all other indicated procedures and he and family understand and wish to proceed. NPO dressing changes as needed. Repeat labs pending ROSE MORE DO Sep 10, 2021 10:15
[2021-09-10 10:36] LABS: ALBUMIN 3.5 GM/DL (3.2-4.5); BILIRUBIN,TOTAL 0.9 MG/DL (0.1-1.0); CALCIUM 8.7 MG/DL (8.5-10.1); CREATININE SERUM 0.87 MG/DL (0.60-1.30); POTASSIUM 3.9 MMOL/L (3.6-5.0); TOTAL PROTEIN 6.2 GM/DL (6.4-8.2)
[2021-09-10] MEDS ORDERED: NAPR500T8 PO (11:10)
[2021-09-10] MEDS ORDERED: ACHD5005 PO (11:14)
[2021-09-10] MEDS ORDERED: AMOX1TAB12 PO (11:14)
[2021-09-10] MEDS ORDERED: LACTATED RINGERS 1,000 ML IV PRN (11:45)
[2021-09-10 11:47] LABS: AMPHETAMINE SCREEN, URINE NEGATIVE (NEGATIVE); BARBITURATE SCREEN URINE NEGATIVE (NEGATIVE); BENZODIAZEPINES SCREEN URINE NEGATIVE (NEGATIVE); CANNABINOID SCREEN, URINE POSITIVE (NEGATIVE); COCAINE SCREEN URINE NEGATIVE (NEGATIVE); METHADONE STAT NEGATIVE (NEGATIVE); OPIATE SCREEN URINE POSITIVE (NEGATIVE); OXYCODONE STAT NEGATIVE (NEGATIVE); PROPOXYPHENE STAT NEGATIVE (NEGATIVE); TRICYCLIC ANTIDEPRESSANTS SCRE NEGATIVE (NEGATIVE)
[2021-09-10] MEDS ORDERED: SEVOFLURANE (ULTANE) 15 ML INHAL SOLN ONE ×2 (11:55→12:52)
[2021-09-10] MEDS ORDERED: LIDOCAINE PF 2% 5 ML (XYLOCAINE) VIAL ONE (11:55)
[2021-09-10] MEDS ORDERED: fentaNYL INJ 100 MCG/2 ML AMP ONE (11:55)
[2021-09-10] MEDS ORDERED: proPOfol 200 MG/20 ML (DIPRIVAN) VIAL IV ONE (11:55)
[2021-09-10] MEDS ORDERED: ONDANSETRON 4 MG/2 ML (SDV) Z0FRAN ONE (11:55)
[2021-09-10] MEDS ORDERED: MIDAZOLAM 2 MG/2 ML (VERSED) VIAL ONE (11:55)
--- NOTE | 2021-09-10 13:09 | Anesthesia-General Post-Op ---
General Patient Condition Mental Status/LOC: Same as Preop Cardiovascular: Satisfactory Nausea/Vomiting: Absent Respiratory: Satisfactory Pain: Controlled Complications: Absent Post Op Complications Complications None Follow Up Care/Instructions Patient Instructions None needed. Anesthesia/Patient Condition Patient Condition Patient is doing well, no complaints, stable vital signs, no apparent adverse anesthesia problems. No complications reported per nursing. JUDI LECHUGA CRNA Sep 10, 2021 13:09
[2021-09-10] MEDS ORDERED: ONDANSETRON 4 MG/2 ML (SDV) Z0FRAN IVP PRN (13:15)
[2021-09-10] MEDS ORDERED: morphine INJ 10 MG/ML 1ML (SYR OR VIAL) IVP ONE (13:15)
[2021-09-10] MEDS ORDERED: fentaNYL INJ 100 MCG/2 ML AMP IVP ONE (13:15)
[2021-09-10] MEDS ORDERED: MEPERIDINE (DEMEROL) INJ 50 MG/ML IVP ONE (13:15)
[2021-09-10 13:16] LABS: HEPATITIS C ANTIBODY C Non-Reactive (Non-Reactive)
--- NOTE | 2021-09-10 15:37 | Progress Note - Hospitalist ---
Subjective HPI/CC On Admission Date Seen by Provider: Sep 10, 2021 Time Seen by Provider: 10:50 Patient is a 36-year-old male with no past medical history who was bitten by a donkey a couple of days ago and presents now with concerns for infection. He was seen in the emergency department the evening that happened and the wound was washed out and he was started on antibiotics and advised to follow-up with Dr. Rondon. He has been compliant with his Augmentin but despite that has had worsening erythema and edema of his forearm. X-ray done in the initial visit revealed possible foreign body concerning for her tooth from the animal. Repeat x-ray today shows that that is still present. He is being admitted for IV antibiotics and potential cleanout in the OR. Surgery is consulted. He was also found to have an elevation of his liver enzymes which were normal 2 days ago. He has no history of liver disease but drinks occasionally and denies an appropriate Tylenol use. Subjective/Events-last exam He is having left forearm pain. He denies fevers and chills. He denies nausea and vomiting. Focused Exam Lactate Level 09/09/21 09:38: Lactic Acid Level 0.76 09/09/21 13:41: Lactic Acid Level 0.74 Objective Exam Vital Signs Vital Signs Date Time Temp Pulse Resp B/P (MAP) Pulse Ox O2 Delivery O2 Flow Rate FiO2 09/10/21 14:01 36.6 56 18 128/78 (95) 99 Room Air 09/10/21 13:40 2.00 Capillary Refill : Less Than 3 Seconds General Appearance: No Apparent Distress, WD/WN Respiratory: Lungs Clear, Normal Breath Sounds, No Respiratory Distress Cardiovascular: Regular Rate, Rhythm, No Edema, No Murmur Gastrointestinal: Normal Bowel Sounds, Non Tender, Soft Extremity: Swelling, Other (left arm laceration and tenderness, no erythema) Neurologic/Psychiatric: Alert, Normal Mood/Affect Results/Procedures Lab Laboratory Tests 09/10/21 09:40 Patient resulted labs reviewed. Imaging: Reviewed Imaging Report Assessment/Plan Assessment and Plan Assess & Plan/Chief Complaint Severe sepsis Cellulitis Animal bite Continue Vanc and Zosyn Surgery following, exploratory washout planned for today Await cultures, preliminarily with Stenotrophomonas and Acinetobacter Elevated LFTs Likely due to sepsis LFTs trending down Hepatitis panel negative DVT ppx: SCDs Diagnosis/Problems Diagnosis/Problems (1) Severe sepsis Status: Acute (2) Cellulitis Status: Acute Qualifiers: Site of cellulitis: extremity Site of cellulitis of extremity: upper extremity Laterality: left Qualified Codes: L03.114 - Cellulitis of left upper limb (3) Animal bite of forearm Status: Acute Qualifiers: Encounter type: initial encounter Laterality: left Qualified Codes: S51.852A - Open bite of left forearm, initial encounter ROBYN ORDAZ MD Sep 10, 2021 15:37
[2021-09-10] MEDS: TRIM/SULFAMETH 160/800 (SEPTRA DS) TAB PO SCH ×2 (18:07→20:33)
--- NOTE | 2021-09-10 18:30 | Progress Note-Post Operative ---
Post-Operative Progess Note Surgeon (s)/Motion Picture Commentator (s) Surgeon ROSE MORE DO Motion Picture Commentator: na Pre-Operative Diagnosis left upper extremity cellulitis and foreign body Post-Operative Diagnosis same Procedure & Operative Findings Date of Procedure 09/10/21 Procedure Performed/Findings left upper extremity wound exploration and removal of foreign body, and washout. Anesthesia Type general Estimated Blood Loss Estimated blood loss (mL): minimal Specimens/Packing Specimens Removed foreign body ROSE MORE DO Sep 10, 2021 18:29
[2021-09-11 00:27] VITALS: BP 111/68
[2021-09-11] MEDS: PIPERACILLIN SODIUM/TAZOBACTAM 4.5 GM in NS (IVPB) 100 ML IV SCH ×3 (00:36→16:34)
[2021-09-11] MEDS: morphine INJ 4 MG/ML 1 ML (VIAL/SYRINGE) IVP PRN (00:37)
[2021-09-11] MEDS: VANCOMYCIN 1 GM/NS 250 ML IVPB IV SCH ×4 (02:48→11:15)
[2021-09-11 03:49] VITALS: BP 102/65
[2021-09-11] MEDS: NS IV 1000 ML 1,000 ML IV SCH ×3 (04:33→13:18)
--- NOTE | 2021-09-11 05:47 | OPERATIVE REPORT ---
DATE OF SERVICE: 09/10/2021 PREOPERATIVE DIAGNOSES: Left upper extremity cellulitis and foreign body, mule/donkey bite. POSTOPERATIVE DIAGNOSES: Left upper extremity cellulitis and foreign body, mule/donkey bite. PROCEDURES: Left upper extremity wound exploration and removal of foreign body, left upper extremity washout. ANESTHESIA: General. SURGEON: Rose Rondon DO ESTIMATED BLOOD LOSS: Minimal. COMPLICATIONS: None. SPECIMENS: Foreign body. INDICATIONS: The patient is a 36-year-old male, who got bit by a donkey or mule to the left upper extremity. He had a washout in the Emergency Department and had a wound packed. He returned to the hospital due to increasing erythema and swelling. He was placed on antibiotics and still having some pain, erythema and swelling. We discussed surgical options of exploration of left forearm with removal of foreign body and washout and packing. He understood and wishes to proceed. Consent was signed in the chart. DESCRIPTION OF PROCEDURE: The patient was taken to the operating suite. He was prepped and draped in sterile fashion. Timeout was performed. Using fluoroscopy, the foreign body was able to be visualized on . Through the anterior opening, this had to be extended slightly and down through the subcutaneous tissue and into the muscle was divided. The foreign body was able to be visualized using fluoroscopy to locate it. A hemostat was used to remove the foreign body and some debris. This overall wound was enlarged to a total of 3.5 x 3.5 cm on the anterior aspect. The other anterior wound was 7 x 3 cm on the anterior aspect of the left forearm. The posterior wounds were then inspected, there were linear, very difficult to further evaluate. There appeared to be some areas of drainage, which these puncture wounds were then opened, creating one linear opening to a total of 7 x 2 cm. This was helped facilitate exploration and washout and further wound care. Using a power security associate, the wounds were then irrigated and suctioned. Once 3 liters of fluid was used to irrigate the left upper extremity, the wounds were then packed with iodoform. The areas were then washed and dried and sterile bandages were applied. The patient was taken to recovery room in stable condition. Job ID: [id number] DocumentID: [id number] Dictated Date: 09/10/2021 19:25:21 Memorial Designer Date: 09/11/2021 05:46:39 Dictated By: ROSE RONDON DO
[2021-09-11 06:00] LABS: BASOPHILS % (AUTO) 0 % (0-10); EOSINOPHILS # (AUTO) 0.1 10^3/uL (0.0-0.3); EOSINOPHILS % (AUTO) 1 % (0-10); HEMATOCRIT 30 % (40-54); HEMOGLOBIN 9.9 g/dL (13.3-17.7); LYMPHOCYTES # (AUTO) 1.9 10^3/uL (1.0-4.0); LYMPHOCYTES % (AUTO) 21 % (12-44); MEAN CORPUSCULAR HEMOGLOBIN 31 pg (25-34); MEAN CORPUSCULAR HGB CONC 33 g/dL (32-36); MEAN CORPUSCULAR VOLUME 92 fL (80-99); MEAN PLATELET VOLUME 11.5 fL (9.0-12.2); MONOCYTES % (AUTO) 11 % (0-12); NEUTROPHILS % (AUTO) 66 % (42-75); PLATELET COUNT 165 10^3/uL (130-400); WHITE BLOOD COUNT 9.1 10^3/uL (4.3-11.0)
[2021-09-11 06:09] LABS: ALBUMIN 2.9 GM/DL (3.2-4.5); POTASSIUM 3.6 MMOL/L (3.6-5.0)
[2021-09-11 06:12] LABS: TOTAL PROTEIN 5.1 GM/DL (6.4-8.2)
[2021-09-11 06:14] LABS: BILIRUBIN,TOTAL 0.5 MG/DL (0.1-1.0)
[2021-09-11 06:15] LABS: CREATININE SERUM 0.81 MG/DL (0.60-1.30)
--- NOTE | 2021-09-11 08:02 | Progress Note - Surgery ---
KAYLI GARVEY 09/11/21 0802: Subjective Date Seen by a Provider: Sep 11, 2021 Subjective/Events-last exam Pt resting comfortably s/p exploration, wash out, and foreign body removal. States his pain is well controlled and currently rates pain 3/10. He is tolerating solid diet at this time. He has no other complaints, denies n/v, fever, sweats, chills. Focused Exam Lactate Level 09/09/21 09:38: Lactic Acid Level 0.76 09/09/21 13:41: Lactic Acid Level 0.74 Objective Exam Vital Signs Date Time Temp Pulse Resp B/P (MAP) Pulse Ox O2 Delivery O2 Flow Rate FiO2 09/11/21 03:49 37.9 67 20 102/65 (77) 97 Room Air 09/11/21 00:27 37.5 66 20 111/68 (82) 99 Room Air 09/10/21 20:35 Room Air 09/10/21 20:33 37.4 09/10/21 19:14 38.1 60 18 113/73 (86) 99 Room Air 09/10/21 16:55 37.7 67 18 121/76 (91) 100 Room Air 09/10/21 14:01 36.6 56 18 128/78 (95) 99 Room Air 09/10/21 13:50 Room Air 09/10/21 13:40 36.6 13 127/87 (100) 100 OxyMask 2.00 09/10/21 13:35 OxyMask 8 09/10/21 13:30 14 98/59 (72) 99 OxyMask 8 09/10/21 13:20 OxyMask 8 09/10/21 13:20 12 94/59 (71) 100 OxyMask 8 09/10/21 13:10 10 90/55 (67) 99 OxyMask 8 09/10/21 13:05 OxyMask 8 09/10/21 13:05 36.4 20 102/80 (87) 100 OxyMask 8 09/10/21 11:50 37.2 58 18 116/71 (86) 96 Room Air 09/10/21 08:00 Room Air I & O 09/11/21 07:00 Intake Total 3647 ml Balance 3647 ml Capillary Refill : Less Than 3 Seconds General Appearance: No Apparent Distress, WD/WN HEENT: PERRL/EOMI, Moist Mucous Membranes; No Scleral Icterus (L), No Scleral Icterus (R) Neck: Normal Inspection, Supple Respiratory: Chest Non Tender, Lungs Clear, Normal Breath Sounds, No Accessory Muscle Use, No Respiratory Distress Cardiovascular: Regular Rate, Rhythm, No Edema, No Murmur Peripheral Pulses: 3+ Radial Pulses (R), 3+ Radial Pulses (L) Gastrointestinal: normal bowel sounds, non tender, soft Extremity: Normal Capillary Refill, Swelling, Other (left arm dressing in place. Wounds appear to be healing well, no significant redness, pain, or drainage from wounds. He has good scow captain strength of left hand and good ROM.) Neurologic/Psychiatric: Alert, Normal Mood/Affect Skin: Normal Color, Ecchymosis, Other (abrasions on torso and arms, left forearm dressed in gauze, left hadn with minimal edema- good ROM, 2+ radial pulse, sensation intact) Lymphatic: No Adenopathy Results Lab Laboratory Tests 09/10/21 09:40: White Blood Count 10.9, Red Blood Count 3.83L, Hemoglobin 11.9L, Hematocrit 35L, Mean Corpuscular Volume 91, Mean Corpuscular Hemoglobin 31, Mean Corpuscular Hemoglobin Concent 34, Red Cell Distribution Width 12.3, Platelet Count 189, Mean Platelet Volume 11.2, Immature Granulocyte % (Auto) 1, Neutrophils (%) (Auto) 78H, Lymphocytes (%) (Auto) 11L, Monocytes (%) (Auto) 9, Eosinophils (%) (Auto) 1, Basophils (%) (Auto) 0, Neutrophils # (Auto) 8.5H, Lymphocytes # (Auto) 1.2, Monocytes # (Auto) 1.0, Eosinophils # (Auto) 0.1, Basophils # (Auto) 0.0, Immature Granulocyte # (Auto) 0.1, Sodium Level 142, Potassium Level 3.9, Chloride Level 111H, Carbon Dioxide Level 22, Anion Gap 9, Blood Urea Nitrogen 7, Creatinine 0.87, Estimat Glomerular Filtration Rate 115, BUN/Creatinine Ratio 8, Glucose Level 106H, Calcium Level 8.7, Corrected Calcium 9.1, Total Bilirubin 0.9, Aspartate Amino Transf (AST/SGOT) 77H, Alanine Aminotransferase (ALT/SGPT) 122H, Alkaline Phosphatase 63, Total Protein 6.2L, Albumin 3.5, Vancomycin Level Trough 18.9 09/10/21 11:30: Urine Opiates Screen POSITIVEH, Urine Oxycodone Screen NEGATIVE, Urine Methadone Screen NEGATIVE, Urine Propoxyphene Screen NEGATIVE, Urine Barbiturates Screen NEGATIVE, Ur Tricyclic Antidepressants Screen NEGATIVE, Urine Phencyclidine Screen NEGATIVE, Urine Amphetamines Screen NEGATIVE, Urine Methamphetamines Screen NEGATIVE, Urine Benzodiazepines Screen NEGATIVE, Urine Cocaine Screen NEGATIVE, Urine Cannabinoids Screen POSITIVEH 09/11/21 05:23: White Blood Count 9.1, Red Blood Count 3.22L, Hemoglobin 9.9L, Hematocrit 30L, Mean Corpuscular Volume 92, Mean Corpuscular Hemoglobin 31, Mean Corpuscular Hemoglobin Concent 33, Red Cell Distribution Width 12.3, Platelet Count 165, Mean Platelet Volume 11.5, Immature Granulocyte % (Auto) 0, Neutrophils (%) (Auto) 66, Lymphocytes (%) (Auto) 21, Monocytes (%) (Auto) 11, Eosinophils (%) (Auto) 1, Basophils (%) (Auto) 0, Neutrophils # (Auto) 6.0, Lymphocytes # (Auto) 1.9, Monocytes # (Auto) 1.0, Eosinophils # (Auto) 0.1, Basophils # (Auto) 0.0, Immature Granulocyte # (Auto) 0.0, Sodium Level 142, Potassium Level 3.6, Chloride Level 111H, Carbon Dioxide Level 21, Anion Gap 10, Blood Urea Nitrogen 5L, Creatinine 0.81, Estimat Glomerular Filtration Rate 117, BUN/Creatinine Ratio 6, Glucose Level 112H, Calcium Level 8.0L, Corrected Calcium 8.9, Total Bilirubin 0.5, Aspartate Amino Transf (AST/SGOT) 34, Alanine Aminotransferase (ALT/SGPT) 75H, Alkaline Phosphatase 46, Total Protein 5.1L, Albumin 2.9L Microbiology 09/10/21 MRSA Screen - Final, Complete MRSA not isolated 09/09/21 Blood Culture - Preliminary, Resulted No growth 09/09/21 Gram Stain - Final, Resulted 09/09/21 Wound Culture - Preliminary, Resulted Gram Negative Bacillus 1 Assessment/Plan Assessment/Plan Assessment/Plan Donkey/mule bite left forearm Foreign body left forearm Cellulitis left forearm Transaminase elevated Patient admitted on IV antibiotics. Patient s/p left forearm exploration and foreign body removal. He is tolerating solid diet at this time. Wound appears to be healing well. LFTs and white count trending down. Remaining labs stable. Wound culture grew out stenotrophomonas maltophilia and actinobacter, continue treatment with trimethoprim/sulfamethoxazole. Culture sensitivity pending at this time. Change dressing daily and as needed. ROSE RONDON DO 09/11/212110: Subjective Subjective/Events-last exam Patient is a 36-year-old male he status post exploration and removal of foreign body and washout of left upper extremity. Pain is controlled. No new complaints. Able to move fingers and feel without difficulty. Swelling and erythema improved he states. Objective Exam General Appearance: No Apparent Distress, WD/WN HEENT: PERRL/EOMI, Normal ENT Inspection Neck: Normal Inspection, Supple Respiratory: Chest Non Tender, No Accessory Muscle Use, No Respiratory Distress Cardiovascular: Regular Rate, Rhythm, No JVD Gastrointestinal: non tender, soft Extremity: Normal Inspection, Swelling (less), Other ( The wounds are open. No purulent drainage) Neurologic/Psychiatric: Alert, Oriented x3, Normal Mood/Affect Skin: Normal Color, Other (abrasions on torso and arms, left forearm dressed in gauze and wounds as noted above, left upper extremity with minimal edema- good ROM, 2+ radial pulse, sensation intact) Lymphatic: No Adenopathy Assessment/Plan Assessment/Plan Assessment/Plan Donkey/mule bite left forearm Foreign body left forearm Cellulitis left forearm Transaminase elevated Patient admitted on IV antibiotics. Patient s/p left forearm exploration and foreign body removal. He is tolerating solid diet at this time. Wound appears to be healing well. LFTs and white count trending down. Remaining labs stable. Wound culture grew out stenotrophomonas maltophilia and actinobacter, continue treatment with trimethoprim/sulfamethoxazole. Culture sensitivity pending at this time. Change dressing daily and as needed. Home soon with daily wound care. Supervisory-Addendum Brief Verification & Attestation Participated in pt care: history, MDM, physical Personally performed: exam, history, MDM, supervision of care Care discussed with: Medical Student Procedures: n/a Results interpretation: Verified all documentation Verification and Attestation of Medical Student E/M Service A medical student performed and documented this service in my presence. I reviewed and verified all information documented by the medical student and made modifications to such information, when appropriate. I personally performed the physical exam and medical decision making. Rose Rondon, Sep 11, 2021,21:11 KAYLI GARVEY Sep 11, 2021 08:02 ROSE RONDON DO Sep 11, 2021 21:11
[2021-09-11 08:21] VITALS: BP 111/71
[2021-09-11] MEDS: TRIM/SULFAMETH 160/800 (SEPTRA DS) TAB PO SCH ×3 (08:37→16:34)
[2021-09-11 11:27] VITALS: BP 155/87
[2021-09-11 15:47] VITALS: BP 123/82
[2021-09-11] MEDS ORDERED: AMOX1TAB12 PO (15:54)
[2021-09-11] MEDS ORDERED: FLUC100T PO (15:54)
[2021-09-11] MEDS ORDERED: SULF1TAB38 PO (15:54)
[2021-09-11] MEDS ORDERED: fluCOnazole (DIFLUCAN) 100 MG TAB PO ONE (16:00)
[2021-09-11 18:53] VITALS: BP 123/82
[2021-09-12] MEDS ORDERED: fluCOnazole (DIFLUCAN) 100 MG TAB PO SCH (09:00)
== END 2021-09-11 18:50 | disposition home or self-care (01) | DRG 854 ==
LOC: EDUNIT# 08:13 → ER 08:14 → 4TH 10:37
PROVIDERS: ADMIT Family Medicine; ATTEND Internal Medicine
PROC: 0KCB0ZZ Extirpation of Matter from Left Lower Arm and Wrist Muscle, Open Approach (ICD-10-PCS; principal; 2021-09-10 12:18)
DX: A41.9 Sepsis, unspecified organism (principal); L03.114 Cellulitis of left upper limb; W55.31XA Bitten by other hoof stock, initial encounter; R65.20 Severe sepsis without septic shock; S50.852A Superficial foreign body of left forearm, initial encounter
CPT/HCPCS: 36415; 73090; 76000; 80053; 80074; 80202; 80306; 80329; 83605; 84145; 85007; 85025; 85027; 86141; 87040; 87070; 87077; 87081; 87186; 87205

== ENCOUNTER → 2021-09-13 | Outpatient (CLI) | payer SELFPAY ==
[~2021-09-13] MED LIST changes: +FLUC100T PO; +SULF1TAB38 PO
== END ==
LOC: WOUNDCARE 08:47
PROVIDERS: ATTEND Family Medicine
DX: T81.31XA Disruption of external operation (surgical) wound, not elsewhere classified, initial encounter (principal); A49.8 Other bacterial infections of unspecified site; S51.852A Open bite of left forearm, initial encounter; L03.114 Cellulitis of left upper limb; E44.0 Moderate protein-calorie malnutrition; R11.0 Nausea; R74.01 Elevation of levels of liver transaminase levels
CPT/HCPCS: 11042; 11045; 87070; 87205; G0463

== ENCOUNTER → 2021-09-18 | Outpatient (CLI) | payer OTHER | LOC: WOUNDCARE 09:08 | PROVIDERS: ATTEND Family Medicine | DX: T81.31XA Disruption of external operation (surgical) wound, not elsewhere classified, initial encounter (principal); I96 Gangrene, not elsewhere classified; S51.852A Open bite of left forearm, initial encounter; E44.0 Moderate protein-calorie malnutrition; R74.01 Elevation of levels of liver transaminase levels; R11.0 Nausea | CPT/HCPCS: 11042; 11045; G0463 ==

== ENCOUNTER → 2021-09-25 | Outpatient (CLI) | payer OTHER | LOC: WOUNDCARE 09:14 | PROVIDERS: ATTEND Family Medicine | DX: T81.31XA Disruption of external operation (surgical) wound, not elsewhere classified, initial encounter (principal); S51.852A Open bite of left forearm, initial encounter; I96 Gangrene, not elsewhere classified; E44.0 Moderate protein-calorie malnutrition; R74.01 Elevation of levels of liver transaminase levels | CPT/HCPCS: 11042; 11045; G0463 ==

== ENCOUNTER → 2021-10-02 | Outpatient (CLI) | payer MEDICAID | LOC: WOUNDCARE 09:11 | PROVIDERS: ATTEND Family Medicine | DX: T81.31XA Disruption of external operation (surgical) wound, not elsewhere classified, initial encounter (principal); S51.852A Open bite of left forearm, initial encounter; E44.0 Moderate protein-calorie malnutrition; I96 Gangrene, not elsewhere classified; R74.01 Elevation of levels of liver transaminase levels | CPT/HCPCS: 11042; G0463 ==

== ENCOUNTER → 2021-10-09 | Outpatient (CLI) | payer MEDICAID | LOC: WOUNDCARE 09:11 | PROVIDERS: ATTEND Family Medicine | DX: T81.31XA Disruption of external operation (surgical) wound, not elsewhere classified, initial encounter (principal); S51.852A Open bite of left forearm, initial encounter; R74.01 Elevation of levels of liver transaminase levels; E44.1 Mild protein-calorie malnutrition | CPT/HCPCS: 11042; A6266; G0463 ==

== ENCOUNTER → 2021-10-16 | Outpatient (CLI) | payer MEDICAID | LOC: WOUNDCARE 09:15 | PROVIDERS: ATTEND Family Medicine | DX: T81.31XA Disruption of external operation (surgical) wound, not elsewhere classified, initial encounter (principal); S51.852A Open bite of left forearm, initial encounter; R74.01 Elevation of levels of liver transaminase levels; E44.0 Moderate protein-calorie malnutrition | CPT/HCPCS: 11042; A6197; G0463 ==

== ENCOUNTER → 2021-10-23 | Outpatient (CLI) | payer MEDICAID | LOC: WOUNDCARE 08:59 | PROVIDERS: ATTEND Family Medicine | DX: T81.31XA Disruption of external operation (surgical) wound, not elsewhere classified, initial encounter (principal); S51.852A Open bite of left forearm, initial encounter; E44.0 Moderate protein-calorie malnutrition; R74.01 Elevation of levels of liver transaminase levels | CPT/HCPCS: 99212 ==